=== PATIENT | male | born 1975 | race Caucasian/White ===

== ENCOUNTER 2022-01-09 15:12 | Outpatient (CLI) | payer BC, SELFPAY ==
[2022-01-09 21:41] LABS: Albumin* 4.7 g/dL (3.3-5.0)
[2022-01-09 21:42] LABS: Chloride* 110 mmol/L (96-114); Potassium* 4.3 mmol/L (3.6-5.1); Sodium* 144 mmol/L (135-149)
[2022-01-09 21:44] LABS: Cholesterol* 216 mg/dL (90-199)
[2022-01-09 21:45] LABS: Alanine Aminotransferase* 31 U/L (4-50); Alkaline Phosphatase* 46 U/L (40-150); Aspartate Amino Transferase* 26 U/L (12-35); Bilirubin Total* 0.5 mg/dL (0.1-1.5); Blood Urea Nitrogen* 21 mg/dL (5-24); Calcium* 9.7 mg/dL (8.4-10.6); Carbon Dioxide* 25 mmol/L (20-32); Creatinine* 0.8 mg/dL (0.5-1.5); Estimated Glomerular Filt Rate 109 ml/min; Glucose* 93 mg/dL (60-115); HDL Cholesterol* 69 mg/dL (>=40); LDL Cholesterol Calculated 129 mg/dL (<100); Total Protein* 7.4 g/dL (6.0-8.3); Triglycerides* 92 mg/dL (40-149)
[2022-01-09 22:26] LABS: HIV 1/2/P24 Combo Screen* Negative (Negative)
[2022-01-09 22:31] LABS: Hepatitis C Virus Antibody* Negative (Negative)
[2022-01-11 09:56] LABS: Rapid Plasma Reagin (RPR) Non Reactive (Non Reactive)
== END 2022-01-09 15:13 | disposition home or self-care (01) ==
PROVIDERS: PCP Family Medicine; Visit Provider Family Medicine
DX: Z00.00 Encounter for general adult medical examination without abnormal findings (principal); E78.5 Hyperlipidemia, unspecified; Z11.3 Encounter for screening for infections with a predominantly sexual mode of transmission; Z11.59 Encounter for screening for other viral diseases
CPT/HCPCS: 80053; 80061; 86592; 86703; 86803

== ENCOUNTER 2023-03-23 07:16 | Outpatient (CLI) | payer BC, SELFPAY | END 2023-03-23 07:17 | disposition home or self-care (01) | PROVIDERS: PCP Family Medicine; Visit Provider Family Medicine | DX: E78.5 Hyperlipidemia, unspecified (principal); Z13.228 Encounter for screening for other metabolic disorders | CPT/HCPCS: 80053; 80061 ==

== ENCOUNTER 2024-08-15 10:46 | Outpatient (CLI) | payer BC, SELFPAY | END 2024-08-15 10:47 | disposition home or self-care (01) | LOC: NFLDREF 08-19 10:34 | PROVIDERS: PCP Family Medicine; Referring Provider Family Medicine; Visit Provider Family Medicine | DX: Z00.00 Encounter for general adult medical examination without abnormal findings (principal); E78.5 Hyperlipidemia, unspecified; N52.9 Male erectile dysfunction, unspecified; Z12.5 Encounter for screening for malignant neoplasm of prostate | CPT/HCPCS: 80053; 80061; G0103 ==